=== PATIENT | male | born 1960 | race Caucasian/White ===

== ENCOUNTER 2022-09-21 10:34 | Emergency (ER) | payer SELFPAY ==
[~2022-09-21] VITALS: Ht 170.2 cm; Wt 101.8 kg
[2022-09-21] MEDS ORDERED: LIDOCAINE 2% MDV 20ML VIAL SC ONE (10:55)
[2022-09-21] MEDS ORDERED: NEOSPORIN OINT 0.9 GM PKT TOP ONE (11:20)
[2022-09-21] MEDS ORDERED: CEPH500C PO (11:23)
[2022-09-21] MEDS ORDERED: BACI500O8 TOP (11:23)
[2022-09-21 11:30] VITALS: BP 126/77; TEMP 98.5; O2SAT 95
== END 2022-09-21 11:31 | disposition home or self-care (01) ==
LOC: M ED 10:34
DX: S61.211A Laceration without foreign body of left index finger without damage to nail, initial encounter (principal); W26.0XXA Contact with knife, initial encounter; Y92.009 Unspecified place in unspecified non-institutional (private) residence as the place of occurrence of the external cause; Y93.89 Activity, other specified; Y99.8 Other external cause status